=== PATIENT | female | born 1950 | race Caucasian/White ===

== ENCOUNTER 2017-10-15 06:24 | Day surgery (SDC) | payer OTHER ==
[~2017-10-15 06:24] MED LIST: AVALIDE 300-121 EACH PO; NORVASC2.5 MG PO; PROTONIX40 MG PO; SYNTHROID75 MCG PO
[2017-10-15] MEDS ORDERED: CIPRO500 MG PO (10:39)
== END 2017-10-15 14:00 | disposition home or self-care (01) ==
LOC: CIR.AMB 06:24
DX: N88.2 Stricture and stenosis of cervix uteri (principal); N81.11 Cystocele, midline

== ENCOUNTER → 2017-11-19 | Day surgery (SDC) | payer OTHER ==
[~2017-11-19] MED LIST changes: +ACIDO FOLICO; +CIPRO500 MG PO; +EC-NAPROSYN375 MG PO; +INTEGRA PLUS; +PERCOCET 5-3251 EACH PO; +VITAMIN B-121000 MC4 PO
== END | disposition home or self-care (01) ==
LOC: ADM 11-17 14:45 → CIR.AMB 08:50
DX: N84.0 Polyp of corpus uteri (principal); N85.8 Other specified noninflammatory disorders of uterus